=== PATIENT | female | born 2000 | race Two or more races ===

== ENCOUNTER 2021-05-10 08:00 | Outpatient (CLI) | payer OTHER | END 2021-05-10 08:30 | disposition home or self-care (01) | LOC: PPH VACUNA 08:00 | PROVIDERS: ATTEND Emergency Medicine Pediatric Emergency Medicine | DX: Z23 Encounter for immunization (principal) ==

== ENCOUNTER 2021-06-24 19:16 | Emergency (ER) | payer OTHER ==
[~2021-06-24] VITALS: Ht 154.9 cm; Wt 72.6 kg
== END 2021-06-24 20:27 | disposition home or self-care (01) ==
LOC: ER 19:16 → EMR PED 19:19
DX: B34.9 Viral infection, unspecified (principal); Z20.822 Contact with and (suspected) exposure to COVID-19

== ENCOUNTER 2025-02-21 14:00 | Inpatient (IN) | payer OTHER ==
[~2025-02-21] VITALS: Ht 162.6 cm; Wt 86.2 kg
[2025-03-05 10:06] VITALS: BP 124/76; BP 130/83
[2025-03-05 11:36] VITALS: BP 117/62
[2025-03-05] MEDS ORDERED: RINGERS SOLUTION,LACTATED 1,000 ML IV SCH (15:15)
[2025-03-05 15:19] VITALS: BP 129/81
[2025-03-05 19:31] VITALS: BP 135/77
[2025-03-05 23:38] VITALS: BP 124/85
[2025-03-05] MEDS ORDERED: MORPHINE SULFATE 4 MG/ML CARTRIDGE IV ONE (23:45)
[2025-03-06] VITALS (9 sets, daily range): BP systolic 117–142; BP diastolic 67–87
[2025-03-06] MEDS ORDERED: OXYTOCIN 500 ML IV SCH (07:00)
[2025-03-06] MEDS ORDERED: MORPHINE SULFATE 4 MG/ML CARTRIDGE IV ONE (08:00)
[2025-03-06] MEDS ORDERED: OXYTOCIN 1,000 ML IV SCH (12:30)
[2025-03-06] MEDS ORDERED: CHLORHEXIDINE GLUCONATE 120 ML BOTTLE TOP ONE (12:30)
[2025-03-06] MEDS ORDERED: ERYTHROMYCIN BASE OPHT 1GM EACH TUBE OP ONE (12:30)
[2025-03-06] MEDS ORDERED: ACETAMINOPHEN 500 MG GEL..CAP PO PRN (12:30)
[2025-03-06] MEDS ORDERED: PRENATABS RX T1 EACH PO (12:44)
[2025-03-06] MEDS ORDERED: HYDROCORTISONE 2.5% 30 GM TUBE RECTAL SCH (13:00)
[2025-03-06] MEDS ORDERED: BENZOCAINE/MENTHOL 90 ML BOTTLE TOP SCH (13:00)
[2025-03-07] VITALS: BP 122/81
[2025-03-07 01:34] LABS: BASO % 0.1 % (0.1-1.2); EOS # 0.06 (0.04-0.54); EOS % 0.5 % (0.7-7.0); LYMPH # 2.45 (1.18-3.74); LYMPH % 21.2 % (19.3-53.1); MEAN PLATELET VOLUME 10.00 fl (9.4-12.4); MONO # 0.97 (0.24-0.82); MONO % 8.4 % (4.7-12.5); NEUT # 7.99 (1.56-6.13); NEUT % 69.4 % (34.0-71.1); RED CELL DISTRIBUTION WIDTH 13.7 % (11.6-14.4)
[2025-03-07 08:52] VITALS: BP 121/78
[2025-03-07] MEDS ORDERED: FERROUS SULFATE 325 MG TABLET.EC PO SCH (09:00)
[2025-03-07 16:15] VITALS: BP 131/88
[2025-03-08] VITALS: BP 137/87
[2025-03-08 09:37] VITALS: BP 131/87
== END 2025-03-08 13:27 | disposition home or self-care (01) | DRG 807 ==
LOC: OB/GYN 03-03 14:00 → LDR 03-05 10:43 → OB/GYN 03-06 13:02
PROVIDERS: ADMIT Specialist; ATTEND Specialist
PROC: BY4FZZZ Ultrasonography of Third Trimester, Single Fetus (ICD-10-PCS; 2025-03-05)
PROC: 4A1HXCZ Monitoring of Products of Conception, Cardiac Rate, External Approach (ICD-10-PCS; 2025-03-05)
PROC: 10E0XZZ Delivery of Products of Conception, External Approach (ICD-10-PCS; principal; 2025-03-06)
DX: O48.0 Post-term pregnancy (principal); Z37.0 Single live birth; Z3A.40 40 weeks gestation of pregnancy

== ENCOUNTER 2025-03-05 03:44 | Outpatient (CLI) | payer OTHER ==
[~2025-03-05] VITALS: Ht 162.6 cm; Wt 86.2 kg
[2025-03-05 02:54] VITALS: BP 130/83; O2SAT 99
[2025-03-05] MEDS ORDERED: MORPHINE SULFATE 4 MG/ML VIAL IV PRN (04:00)
[2025-03-05] MEDS ORDERED: RINGERS SOLUTION,LACTATED 1,000 ML IV SCH (04:00)
[2025-03-05 04:36] LABS: URINE APPEARANCE Clear; URINE BILIRRUBIN Negative (NEGATIVE); URINE BLOOD Negative; URINE COLOR Yellow; URINE GLUCOSE Negative (NEGATIVE); URINE KETONE Trace (NEGATIVE); URINE LEUKOCYTE Trace; URINE NITRATE Negative; URINE UROBILINOGEN 1.0 E.U./dl
[2025-03-05 04:37] LABS: BASO % 0.1 % (0.1-1.2); EOS # 0.06 (0.04-0.54); EOS % 0.8 % (0.7-7.0); LYMPH # 2.44 (1.18-3.74); LYMPH % 30.7 % (19.3-53.1); MEAN PLATELET VOLUME 10.40 fl (9.4-12.4); MONO # 0.67 (0.24-0.82); MONO % 8.4 % (4.7-12.5); NEUT # 4.74 (1.56-6.13); NEUT % 59.7 % (34.0-71.1); RED CELL DISTRIBUTION WIDTH 13.4 % (11.6-14.4)
[2025-03-05 04:56] LABS: INR 0.95
[2025-03-05 05:12] LABS: URINE EPITHELIAL CELLS 143.3 uL (0.0-38.8); URINE RBC 16.1 uL (0.0-20.8); URINE WBC 90.1 uL (0.0-23.2)
[2025-03-05 05:32] LABS: URINE PROTEIN 100 (NEGATIVE)
[2025-03-05 05:33] LABS: URINE CAST 1.02 uL (0.0-1.40)
[2025-03-05 07:21] VITALS: BP 124/76
[2025-03-06] MEDS ORDERED: PRENATABS RX T1 EACH PO (12:44)
== END 2025-03-05 11:13 | disposition still patient (30) ==
LOC: OBS/DEL 03:44
PROVIDERS: Obstetrics & Gynecology; ATTEND Specialist
DX: O26.893 Other specified pregnancy related conditions, third trimester (principal)